=== PATIENT | male | born 1990 | race Caucasian/White ===

== ENCOUNTER 2016-10-25 17:12 | Emergency (ER) | payer OTHER ==
[2016-10-25 17:23] VITALS: BP 130/80; PULSE 65; RESP 18; TEMP 97.5
--- NOTE | 2016-10-25 18:07 | ED ---
General Adult HPI - General Chief complaint: [place]/Exposure Stated complaint: Blood exposure, [facility] Time Seen by Provider: 10/25/16 17:51 Source: patient Mode of arrival: ambulatory Limitations: no limitations - History of Present Illness Initial comments: 26-year-old male presents to the ER after occupational exposure. He states that he was handcuffing a suspect whom he did not realize had an open wound on his wrist. While handcuffing and he noticed that some blood had been transferred to his own hand of which she remembered he had an open cut on his thumb. he washed the blood off with antiseptic alcohol face hand translator/interpreter and then proceeded to the nearest gas station to wash his hands with soap and water. He then proceeded to the ER to have exposure protocol followed. - Related Data Allergies Allergy/AdvReac Type Severity Reaction Status Date / Time No Known Allergies Allergy Verified 10/25/16 17:23 Review of Systems ROS Statement: Those systems with pertinent positive or pertinent negative responses have been documented in the HPI. ROS Other: All systems not noted in ROS Statement are negative. Past Medical History Past Medical History: No Reported History History of Any Multi-Drug Resistant Organisms: None Reported Past Surgical History: Hernia Repair Past Psychological History: No Psychological Hx Reported Smoking Status: Never smoker Past Alcohol Use History: Rare Past Drug Use History: None Reported General Exam Limitations: no limitations General appearance: alert, in no apparent distress Neurological exam: Present: alert, oriented X3 Psychiatric exam: Present: normal affect, normal mood Skin exam: Present: other (Small laceration left hand.) Course Vital Signs 10/25/16 17:21 Temperature 97.5 F L Pulse Rate 65 Respiratory 18 Rate Blood Pressure 130/80 O2 Sat by Pulse 98 Oximetry Medical Decision Making - Medical Decision Making 26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 Suspect had a cut on his wrist and all handcuffing him blood was transferred to his hand which she had a cut on his left thumb. He used antiseptic wash and then proceeded to a gas station and washed his hands with soap and water. He presented to the ER for occupational exposure protocol. Blood was taken and all questions were answered. He was given postexposure information and will be contacted with his lab results. It was discussed that he may have these results repeated in 6 months with antibodies may not show up. He is follow-up with his primary care physician or return to the ER if any new or worsening symptoms or concerns. Disposition Clinical Impression: Exposure to blood or body fluid Disposition: HOME SELF-CARE Condition: Good Instructions: Acute Wound Care (ED) Referrals: Ada Blunt DO [Primary Care Provider] - 1-2 days Time of Disposition: 18:11 Decision Time: 18:11
== END 2016-10-25 18:06 | disposition home or self-care (01) ==
LOC: EC 17:12
DX: S61.412A Laceration without foreign body of left hand, initial encounter (principal); Z57.5 Occupational exposure to toxic agents in other industries; X58.XXXA Exposure to other specified factors, initial encounter; Y92.69 Other specified industrial and construction area as the place of occurrence of the external cause; Y93.89 Activity, other specified; Y99.0 Civilian activity done for income or pay
CPT/HCPCS: 99282